=== PATIENT | female | born 1995 | race African-American/Black ===

== ENCOUNTER 2021-12-14 20:39 | Emergency (ER) | payer OTHER ==
[~2021-12-14] VITALS: Ht 162.6 cm; Wt 93.0 kg
[2021-12-14] MEDS ORDERED: PROTONIX20 MG (21:12)
[2021-12-15] MEDS ORDERED: ZOFRAN8 MG PO (03:50)
[2021-12-15] MEDS ORDERED: PROTONIX40 MG PO (03:50)
[2021-12-15] MEDS ORDERED: INTESTINEX680 M1 PO (03:50)
== END 2021-12-15 04:24 ==
LOC: ER 20:39
DX: O99.612 Diseases of the digestive system complicating pregnancy, second trimester (principal); K92.89 Other specified diseases of the digestive system; Z3A.26 26 weeks gestation of pregnancy; K52.9 Noninfective gastroenteritis and colitis, unspecified; Z20.822 Contact with and (suspected) exposure to COVID-19

== ENCOUNTER 2022-02-23 14:08 | Emergency (ER) | payer OTHER ==
[~2022-02-23] VITALS: Ht 162.6 cm; Wt 98.9 kg
[~2022-02-23 14:08] MED LIST: INTESTINEX680 M1 PO; PROTONIX20 MG; PROTONIX40 MG PO; ZOFRAN8 MG PO
== END 2022-02-23 22:47 | disposition home or self-care (01) ==
LOC: ER 14:08
DX: O99.891 Other specified diseases and conditions complicating pregnancy (principal); Z3A.36 36 weeks gestation of pregnancy; M54.59 Other low back pain

== ENCOUNTER 2022-03-03 12:44 | Inpatient (IN) | payer OTHER ==
[~2022-03-03] VITALS: Ht 162.6 cm; Wt 97.5 kg
[2022-03-03] MEDS ORDERED: PRENATAL CAPLE1 EAC1 (15:42)
== END 2022-03-05 12:01 | disposition home or self-care (01) | DRG 807 ==
LOC: LDR 12:44 → OB/GYN 18:44
PROVIDERS: ADMIT Specialist; ATTEND Specialist
PROC: 10E0XZZ Delivery of Products of Conception, External Approach (ICD-10-PCS; principal; 2022-03-03)
PROC: 4A1HXCZ Monitoring of Products of Conception, Cardiac Rate, External Approach (ICD-10-PCS; 2022-03-03)
DX: O80 Encounter for full-term uncomplicated delivery (principal); Z37.0 Single live birth; Z3A.37 37 weeks gestation of pregnancy; Z20.822 Contact with and (suspected) exposure to COVID-19